=== PATIENT | female | born 1985 | race Caucasian/White ===

== ENCOUNTER 2019-08-11 18:49 | Emergency (ER) | payer SELFPAY ==
[2019-08-11] MEDS ORDERED: ACETAMINOPHEN 500 MG TABLET (FP) PO ONE (18:55)
--- NOTE | 2019-08-11 18:55 | PDOC ---
Rapid Medical Evaluation Time Seen by Provider: 08/11/19 18:52 Medical Evaluation: 08/11/19 18:53 CC: myalgias with nausea since 3AM; worse in extremities PE: HR-112. AF. No focal findings. Orders: tylenol Patient will proceed to ED for further evaluation. Discharge Disposition - Diagnosis Myalgia - Referrals - Patient Instructions - Post Discharge Activity
[2019-08-11 18:56] VITALS: BMI 38.4
--- NOTE | 2019-08-11 20:34 | PDOC ---
History of Present Illness - General Chief Complaint: Nausea/Vomiting Stated Complaint: BODY ACHES Time Seen by Provider: 08/11/19 18:52 History Source: Patient - History of Present Illness Initial Comments: 08/11/19 22:15 Ms. Valero is a 33 y/o woman w/hx GERD p/w one day of diffuse muscle aches, nausea , vomiting. She reports waking up early this morning @ 0300 with epigastric burning and nausea. She reports x2 nbnb vomiting, and x2 non bloody loose stools. She denies prior abd surgery. She did not take anything for GERD. She reports mid sternal squeezing 9/10 chest pain radiating to her R arm. She denies any cough, sob, weakness. Past History - Past Medical History Allergies/Adverse Reactions: Allergies Allergy/AdvReac Type Severity Reaction Status Date / Time No Known Allergies Allergy Verified 08/11/19 18:56 Anemia: Yes COPD: No - Surgical History Abdominal Surgery: (YUBAL LIGATION) - Psycho Social/Smoking Cessation Hx Smoking History: Never smoked Hx Alcohol Use: Yes Drug/Substance Use Hx: No Review of Systems - Review of Systems Able to Perform ROS?: Yes Comments:: 08/11/19 22:35 ROS: GENERAL/CONSTITUTIONAL: No fever or chills. No weakness. HEAD, EYES, EARS, NOSE AND THROAT: No change in vision. No ear pain or discharge. No sore throat. CARDIOVASCULAR: Chest pain. No shortness of breath RESPIRATORY: No cough, wheezing, or hemoptysis. GASTROINTESTINAL: Nausea, vomiting, diarrhea. No constipation. GENITOURINARY: No dysuria, frequency, or change in urination. MUSCULOSKELETAL: No joint or muscle swelling or pain. No neck or back pain. SKIN: No rash NEUROLOGIC: No headache, vertigo, loss of consciousness, or change in strength/ sensation. ENDOCRINE: No increased thirst. No abnormal weight change HEMATOLOGIC/LYMPHATIC: No anemia, easy bleeding, or history of blood clots. ALLERGIC/IMMUNOLOGIC: No hives or skin allergy. *Physical Exam - Vital Signs Last Vital Signs Temp Pulse Resp BP Pulse Ox 99.4 F 110 H 16 138/72 97 08/11/19 18:53 08/11/19 18:53 08/11/19 18:53 08/11/19 18:53 08/11/19 18:53 - Physical Exam 08/11/19 22:35 PE: GENERAL: Awake, alert, and fully oriented, in no acute distress HEAD: No signs of trauma, normocephalic, atraumatic EYES: PERRLA, EOMI, sclera anicteric, conjunctiva clear ENT: Auricles normal inspection, hearing grossly normal, nares patent, oropharynx clear without exudates. Moist mucosa NECK: Normal ROM, supple, no lymphadenopathy, JVD, or masses LUNGS: No distress, speaks full sentences, clear to auscultation bilaterally HEART: Regular rate and rhythm, normal S1 and S2, no murmurs, rubs or gallops, peripheral pulses normal and equal bilaterally. ABDOMEN: Soft, nontender, normoactive bowel sounds. No guarding, no rebound. No masses EXTREMITIES : Normal inspection, Normal range of motion, no edema. No clubbing or cyanosis NEUROLOGICAL: Cranial nerves II through XII grossly intact. Normal speech, normal gait, no focal sensorimotor deficits SKIN: Warm, Dry, normal turgor, no rashes or lesions noted Medical Decision Making - Medical Decision Making 08/11/19 22:37 33F w/hx GERD p/w worsening GERD, vomiting x2, loose stools x2, muscle aches, chest pain. Ddx viral GI infection, GERD, ACS. Plan: CBC CMP Cardiac Profile EKG CXR Federico Preciado Dispo: Discharge pending labs --- On reassessment, she reports that her symptoms have resolved. Plan for discharge pending CMP, Troponin CBC - wnl Discharge - Discharge Information Problems reviewed: Yes Clinical Impression/Diagnosis: Myalgia Condition: Stable Disposition: HOME - Admission No - Follow up/Referral - Patient Discharge Instructions Patient Printed Discharge Instructions: DI for Nausea -- Adult, DI for Vomiting -- Adult Additional Instructions: You were seen in the ER for nausea, vomiting, diarrhea. Your bloodwork was normal. Please be sure to follow up with your primary care provider as soon as possible, in the next 2-3 days. Return to the ER if you develop chest pain, weakness, intractable vomiting. - Post Discharge Activity
[2019-08-11] MEDS ORDERED: ACETAMINOPHEN 325 MG TABLET (FP) ONE (20:42)
[2019-08-11] MEDS ORDERED: FAMOTIDINE 20 MG/50 ML IVPB 20 MG/50 ML MG IVPB ONE ×2 (21:19→21:33)
[2019-08-11] MEDS ORDERED: MAG HYDROX/AL HYDROX/SIMETH -MYLANTA- ORAL SUSPENSION PO ONE (21:19)
[2019-08-11] MEDS ORDERED: METOCLOPRAMIDE HCL INJECTION 10 MG/2 ML VIAL IVPUSH ONE (21:19)
--- NOTE | 2019-08-11 21:30 | PDOC ---
Documentation entered by Pablo Breen SCRIBE, acting as scribe for Mee Sylvester MD. Mee Sylvester MD: This documentation has been prepared by the Jamshid correa Xhesika, SCRIBE, under my direction and personally reviewed by me in its entirety. I confirm that the documentation accurately reflects all work, treatment, procedures, and medical decision making performed by me. Attending Attestation - Resident Resident Name: MirzasagarLiban - ED Attending Attestation I have performed the following: I have examined & evaluated the patient, The case was reviewed & discussed with the resident, I agree w/resident's findings & plan, Exceptions are as noted - HPI HPI: 08/11/19 21:19 The patient is a 33 year old female with a significant PMH of GERD who presents to the emergency department for 1 day vomiting x2, nausea, body aches and loose bowel movements. Pt describes her body aches as 8/10 in severity, squeezing, radiating to the R arm. pt states she got her flu shot this year. denies any recent travel or sick contacts. The patient denies chest pain, shortness of breath, headache and dizziness. Denies fever, chills, cough, and constipation. Denies dysuria, frequency, urgency and hematuria. Allergies: NKDA - Physicial Exam PE: 08/11/19 21:45 Nourished well-developed 33-year-old female has had several episodes of nausea vomiting, body aches. She had diarrhea yesterday. Head normocephalic atraumatic eyes mabel Neck is supple, no neck pain Lungs are clear to auscultation bilaterally CVS regular rate rhythm S1-S2 Protuberant belly but no rebound or guarding Skin warm and dry Extremities no deformities, no erythema, neuro alert and oriented x3, ambulatory, no gross focal neuro deficits - Medical Decision Making 08/11/19 21:47 Differential includes viral syndrome, gastroenteritis, gastritis, cholecystitis , influenza Labs will be sent, patient will be given Zofran and IV fluids and reassessed 08/12/19 00:23 Impression viral illness/gastroenteritis Patient has benign abdominal exam Labs are not concerning Influenza swab is negative patient feeling better after IV fluids and Reglan 08/12/19 00:25
[2019-08-11] MEDS ORDERED: MAG HYDROX/AL HYDROX/SIMETH 30 ML UNIT-DOSE CUP ONE (21:33)
[2019-08-11] MEDS ORDERED: METOCLOPRAMIDE HCL INJECTION 10 MG/2 ML VIAL ONE (21:33)
[2019-08-11 22:31] LABS: BASO % 0.2 % (0-2.0); HEMOGLOBIN 10.6 GM/dL (10.7-15.3); LYMPH % 12.8 % (8-40); MCH 23.7 pg (25.7-33.7); MCHC 31.2 g/dl (32.0-36.0); MEAN PLT VOLUME 9.8 fl (7.5-11.1); MONO % 4.3 % (3.8-10.2); NEUT % 80.7 % (42.8-82.8); PLATELET COUNT 185 K/MM3 (134-434); RBC 4.47 M/mm3 (3.60-5.2); RDW 15.4 % (11.6-15.6); WHITE BLOOD COUNT 8.9 K/mm3 (4.0-10.0)
[2019-08-11 22:47] LABS: EPI CELLS 2.7 /HPF (0-5/HPF); HYALINE CASTS 1 /lpf (0-8); PH,URINE 6.5 (5.0-8.0); URINE APPEARANCE CLOUDY; URINE BACTERIA 99.6 /hpf (NEGATIVE); URINE BILIRUBIN NEGATIVE (NEGATIVE); URINE COLOR ORANGE; URINE GLUCOSE (UA) NEGATIVE (NEGATIVE); URINE KETONE NEGATIVE (NEGATIVE); URINE LEUK ESTERASE TRACE (NEGATIVE); URINE NITRITE NEGATIVE (NEGATIVE); URINE PROTEIN 1+ (NEGATIVE); URINE RBC 957 /hpf (0-4); URINE WBC 2 /hpf (0-5)
[2019-08-11 23:01] LABS: ALBUMIN 3.7 g/dl (3.4-5.0); ALK PHOS 82 U/L (45-117); ANION GAP 8 MMOL/L (8-16); BILIRUBIN,TOTAL 0.4 mg/dL (0.2-1); BLOOD UREA NITROGEN 10.8 mg/dL (7-18); CALCIUM 8.1 mg/dL (8.5-10.1); CHLORIDE 104 mmol/L (98-107); CO2 24 mmol/L (21-32); CREATININE 0.9 mg/dL (0.55-1.3); GLUCOSE,RANDOM 87 mg/dL (74-106); POTASSIUM 3.9 mmol/L (3.5-5.1); SGOT/AST 17 U/L (15-37); SGPT/ALT 20 U/L (13-61); SODIUM 135 mmol/L (136-145); TOT PROT 7.4 g/dl (6.4-8.2)
[2019-08-12 00:43] VITALS: BP 130/90; PULSE 98; TEMP 98.6
--- NOTE | 2019-08-12 08:43 | EKG ---
Test Reason : Blood Pressure : / mmHG Vent. Rate : 098 BPM Atrial Rate : 098 BPM P-R Int : 136 ms QRS Dur : 082 ms QT Int : 340 ms P-R-T Axes : 044 034 011 degrees QTc Int : 434 ms NORMAL SINUS RHYTHM POSSIBLE LEFT ATRIAL ENLARGEMENT BORDERLINE ECG NO PREVIOUS ECGS AVAILABLE Confirmed by MD SANTINO, CHRISS ([id number]) on 08/12/2019 8:43:12 AM Referred By: Confirmed By:CHRISS DE MD
== END 2019-08-12 00:58 | disposition home or self-care (01) ==
LOC: JER 18:49
PROC: 3E033GC Introduction of Other Therapeutic Substance into Peripheral Vein, Percutaneous Approach (ICD-10-PCS; principal; 2019-08-11)
PROC: 3E033GC Introduction of Other Therapeutic Substance into Peripheral Vein, Percutaneous Approach (ICD-10-PCS; 2019-08-11)
DX: A08.4 Viral intestinal infection, unspecified (principal); B97.89 Other viral agents as the cause of diseases classified elsewhere; M79.18 Myalgia, other site; K21.9 Gastro-esophageal reflux disease without esophagitis; D64.9 Anemia, unspecified; Z98.51 Tubal ligation status
CPT/HCPCS: 36415; 71045-TC-FY; 80053; 81003; 82550; 84484; 84703; 85025; 87086; 87804; 93005; 93010; 99285-25